=== PATIENT | female | born 2005 | race Caucasian/White ===

== ENCOUNTER 2023-06-03 22:28 | Emergency (ER) | payer MEDICAID ==
[~2023-06-03] VITALS: Ht 154.9 cm; Wt 57.0 kg
[2023-06-03 22:34] VITALS: BP 109/47; RESP 19; TEMP 97.7; O2SAT 99
[2023-06-03 22:35] VITALS: PULSE 89
[2023-06-03 22:54] LABS: BASOPHILS % 0.4 % (0.0-2.0); EOSINOPHILS % 0.8 % (0.0-5.0); HEMATOCRIT. 39.9 % (36.0-48.0); HEMOGLOBIN. 13.2 g/dL (12.0-16.0); LYMPHOCYTES % 17.2 % (20.0-50.0); MEAN CORPUSCULAR HEMOGLOBIN 30.6 pg (28.0-32.0); MEAN CORPUSCULAR HGB CONC 33.2 g/dL (31.0-37.0); MEAN CORPUSCULAR VOLUME 92.2 fL (81.0-99.0); MEAN PLATELET VOLUME 8.3 fl (7.4-10.4); MONOCYTES % 6.6 % (2.0-8.0); PLATELET 313 x1000/uL (130-400); RED BLOOD CELL COUNT 4.32 mill/uL (4.2-5.4); WHITE BLOOD COUNT 18.4 x1000/uL (4.5-11.0)
[2023-06-03 23:05] LABS: CHLORIDE 104 mEq/L (98-107); POTASSIUM 3.3 mEq/L (3.5-5.1); SODIUM 138 mEq/L (136-145)
[2023-06-03 23:05] LABS: CLARITY URINE TURBID (CLEAR); COLOR URINE YELLOW (YELLOW); GLUCOSE URINE NEGATIVE (NEGATIVE); KETONES URINE NEGATIVE (NEGATIVE); LEUKOCYTE ESTERASE URINE 1+ (NEGATIVE); NITRITE URINE NEGATIVE (NEGATIVE); OCCULT BLOOD URINE NEGATIVE (NEGATIVE); PH URINE >=9.0 (4.5-8.0); PROTEIN URINE TRACE (NEGATIVE); SPECIFIC GRAVITY URINE 1.022 (1.005-1.030); UROBILINOGEN URINE 0.2 E.U./dL (0.2-1.0)
[2023-06-03 23:06] LABS: CARBON DIOXIDE 27 mEq/L (21-32)
[2023-06-03 23:07] LABS: CALCIUM 8.9 mg/dL (8.7-10.4)
[2023-06-03 23:11] LABS: CREATININE 0.9 mg/dL (0.6-1.0); GLUCOSE 131 mg/dL (70-105)
[2023-06-03 23:12] LABS: UREA NITROGEN BLOOD 9 mg/dL (9-23)
[2023-06-03 23:13] LABS: ALANINE AMINOTRANSFERASE 11 IU/L (10-49); ALBUMIN 4.4 g/dL (3.2-4.8); ASPARTATE AMINOTRANSFERASE 22 IU/L (<34)
[2023-06-03 23:14] LABS: BILIRUBIN TOTAL 0.4 mg/dL (0.1-1.0); PROTEIN TOTAL 7.3 g/dL (6.0-8.3)
[2023-06-03 23:16] LABS: HCG SCREEN NEGATIVE
[2023-06-03 23:26] LABS: AMORPHOUS SEDIMENT URINE 2+ /lpf; BACTERIA URINE TRACE; RBC URINE NONE SEEN /hpf (0-2); SQUAMOUS EPITHELIAL CELL URINE 1+ /lpf (RARE/1+)
[2023-06-04] MEDS: KETOROLAC 30MG/ML VIAL IM ONE (01:35)
[2023-06-04] MEDS: IBUPROFEN 600MG TABLET PO ONE (01:36)
[2023-06-04] MEDS ORDERED: CEPH250C2 MT (02:12)
[2023-06-04] MEDS ORDERED: IBUP-2029 MT (02:12)
[2023-06-04] MEDS: CEFTRIAXONE SODIUM 500MG VIAL IM ONE (02:15)
[2023-06-04] MEDS ORDERED: METR-167 MT (02:17)
[2023-06-04] MEDS ORDERED: DOXY100C5 MT (02:17)
== END 2023-06-04 02:20 | disposition home or self-care (01) ==
LOC: ER 22:28
DX: N39.0 Urinary tract infection, site not specified (principal); N83.201 Unspecified ovarian cyst, right side
CPT/HCPCS: 80053; 81003; 84703; 83690; 85025; 36415; 76830; 76856; 99285; 96372; J0696; J1885; Z7610

== ENCOUNTER 2024-01-05 05:13 | Emergency (ER) | payer MEDICAID ==
[~2024-01-05] VITALS: Ht 154.9 cm; Wt 62.1 kg
[~2024-01-05 05:13] MED LIST: DOXY100C5 MT; IBUP-2029 MT; METR-167 MT
[2024-01-05 05:14] VITALS: O2SAT 100
[2024-01-05 05:22] VITALS: BP 107/59; PULSE 80; RESP 18
[2024-01-05 08:24] LABS: BASOPHILS % 0.8 % (0.0-2.0); EOSINOPHILS % 8.9 % (0.0-5.0); HEMATOCRIT. 39.7 % (36.0-48.0); HEMOGLOBIN. 13.1 g/dL (12.0-16.0); LYMPHOCYTES % 41.8 % (20.0-50.0); MEAN CORPUSCULAR HEMOGLOBIN 30.2 pg (28.0-32.0); MEAN CORPUSCULAR VOLUME 91.5 fL (81.0-99.0); MONOCYTES % 12.7 % (2.0-8.0); NEUTROPHILS % 35.8 % (40.0-76.0); PLATELET 299 x1000/uL (130-400); RED BLOOD CELL COUNT 4.34 mill/uL (4.2-5.4); RED CELL DISTRIBUTION WIDTH 14.3 % (11.6-14.6)
[2024-01-05 08:36] LABS: CHLORIDE 108 mEq/L (98-107); SODIUM 141 mEq/L (136-145)
[2024-01-05 08:37] LABS: CARBON DIOXIDE 28 mEq/L (21-32)
[2024-01-05 08:38] LABS: CALCIUM 9.2 mg/dL (8.7-10.4)
[2024-01-05 08:42] LABS: CREATININE 0.9 mg/dL (0.6-1.0); GLUCOSE 100 mg/dL (70-105); UREA NITROGEN BLOOD 15 mg/dL (9-23)
[2024-01-05 09:00] LABS: HCG SCREEN NEGATIVE
== END 2024-01-05 11:15 | disposition left against medical advice (07) ==
LOC: ER 05:13
DX: Z11.3 Encounter for screening for infections with a predominantly sexual mode of transmission (principal)
CPT/HCPCS: 36415; 80048; 84703; 85025; 86592; 99283

== ENCOUNTER 2024-04-09 12:59 | Emergency (ER) | payer MEDICAID, OTHER ==
[~2024-04-09] VITALS: Ht 157.5 cm; Wt 55.0 kg
[2024-04-09 13:06] VITALS: TEMP 37.1; O2SAT 100
[2024-04-09] MEDS ORDERED: SULF1TAB48 MT (15:00)
[2024-04-09 15:22] VITALS: BP 112/72; PULSE 95; RESP 18; O2SAT 100
== END 2024-04-09 15:28 | disposition home or self-care (01) ==
LOC: ER 12:59
DX: N75.0 Cyst of Bartholin's gland (principal)
CPT/HCPCS: 99283; Z7610; 99284

== ENCOUNTER 2024-08-23 08:12 | Emergency (ER) | payer MEDICAID, OTHER ==
[~2024-08-23] VITALS: Ht 152.4 cm; Wt 54.5 kg
[~2024-08-23 08:12] MED LIST changes: +SULF1TAB48 MT
[2024-08-23 08:19] VITALS: O2SAT 99
[2024-08-23] MEDS ORDERED: MORPHINE SULFATE 4 MG/ML INJ (FOR IV/IM USE) IV ONE (09:00)
[2024-08-23 09:11] LABS: BASOPHILS % 0.5 % (0.0-2.0); EOSINOPHILS % 1.1 % (0.0-5.0); HEMATOCRIT. 39.4 % (36.0-48.0); HEMOGLOBIN. 13.4 g/dL (12.0-16.0); LYMPHOCYTES % 23.8 % (20.0-50.0); MEAN PLATELET VOLUME 8.2 fl (7.4-10.4); MONOCYTES % 7.2 % (2.0-8.0); NEUTROPHILS % 67.4 % (40.0-76.0); PLATELET 265 x1000/uL (130-400); RED BLOOD CELL COUNT 4.36 mill/uL (4.2-5.4); RED CELL DISTRIBUTION WIDTH 13.0 % (11.6-14.6)
[2024-08-23] MEDS: BACITRACIN ZINC OINT UDPKT TOP ONE (09:15)
[2024-08-23] MEDS: MORPHINE SULFATE 2 MG/ML INJ (NOT FOR IM USE) IV ONE (09:15)
[2024-08-23] MEDS: ONDANSETRON HCL 4MG/2ML INJ IV ONE (09:15)
[2024-08-23 09:23] LABS: INR 1.0
[2024-08-23 09:25] LABS: CREATININE 1.1 mg/dL (0.6-1.0); HCG SCREEN NEGATIVE; UREA NITROGEN BLOOD 12 mg/dL (9-23)
[2024-08-23 09:27] LABS: ASPARTATE AMINOTRANSFERASE 23 IU/L (<34); BILIRUBIN DIRECT 0.2 mg/dL (<=3.0); BILIRUBIN TOTAL 0.5 mg/dL (0.1-1.0); PROTEIN TOTAL 7.2 g/dL (6.0-8.3)
[2024-08-23] MEDS ORDERED: IOHEXOL-300 100 ML BOTTLE ONE (11:04)
[2024-08-23 11:18] VITALS: BP 117/64; PULSE 87; RESP 16; TEMP 37.1; O2SAT 99
[2024-08-23 12:04] LABS: ETHANOL BLOOD < 10 mg/dL (<10)
== END 2024-08-23 12:53 | disposition home or self-care (01) ==
LOC: ER 08:12
DX: S70.211A Abrasion, right hip, initial encounter (principal); S70.212A Abrasion, left hip, initial encounter; V89.2XXA Person injured in unspecified motor-vehicle accident, traffic, initial encounter; Y93.89 Activity, other specified; Y92.410 Unspecified street and highway as the place of occurrence of the external cause; Y92.89 Other specified places as the place of occurrence of the external cause
CPT/HCPCS: 80076; 80048; 80320; 84703; 85025; 85610; 85730; 86850; 86900; 86901; 36415; 71045; 72170; 74177; 99285; Q9967; G0480